=== PATIENT | female | born 1975 | race Caucasian/White ===

== ENCOUNTER 2022-07-08 21:16 | Emergency (ER) | payer MEDICAID ==
[2022-07-08] MEDS: methylPREDNISolone Sodium Succinate 125 MG/2 ML SDV IM ONE (21:59)
[2022-07-08] MEDS: Ketorolac 60 MG/2 ML SDV IM ONE (22:00)
[2022-07-08] MEDS: methylPREDNISolone Sodium Succinate 125 MG/2 ML SDV ONE (22:02)
[2022-07-08] MEDS: Ketorolac 60 MG/2 ML SDV ONE (22:03)
[2022-07-08] MEDS: fentaNYL 100 MCG/2 ML SDV IM STA (23:04)
[2022-07-09] MEDS: fentaNYL 100 MCG/2 ML SDV ONE (01:55)
== END 2022-07-08 23:42 | disposition home or self-care (01) ==
LOC: LB.ED 21:16
DX: M54.31 Sciatica, right side (principal); I10 Essential (primary) hypertension; E11.9 Type 2 diabetes mellitus without complications
CPT/HCPCS: 96372; 99283; J1885; J2930; J3010

== ENCOUNTER 2022-07-10 10:36 | Emergency (ER) | payer MEDICAID ==
[2022-07-10] MEDS ORDERED: fentaNYL 100 MCG/2 ML SDV IM STA (11:05)
[2022-07-10] MEDS ORDERED: fentaNYL 100 MCG/2 ML SDV ONE (11:21)
[2022-07-10] MEDS ORDERED: Orphenadrine 60 MG/2 ML Inj IM ONE (11:50)
[2022-07-10] MEDS ORDERED: Ketorolac 60 MG/2 ML SDV IM ONE (11:51)
[2022-07-10] MEDS ORDERED: Ketorolac 60 MG/2 ML SDV ONE (12:31)
[2022-07-10] MEDS ORDERED: Orphenadrine 60 MG/2 ML Inj ONE (12:31)
[2022-07-10 12:46] VITALS: BP 134/82; PULSE 94
== END 2022-07-10 12:35 | disposition home or self-care (01) ==
LOC: LB.ED 10:36
DX: M54.41 Lumbago with sciatica, right side (principal); E78.00 Pure hypercholesterolemia, unspecified; I10 Essential (primary) hypertension; E11.9 Type 2 diabetes mellitus without complications; E66.9 Obesity, unspecified; Z68.38 Body mass index [BMI] 38.0-38.9, adult; Z79.899 Other long term (current) drug therapy; Z79.4 Long term (current) use of insulin; Z79.84 Long term (current) use of oral hypoglycemic drugs; Z90.710 Acquired absence of both cervix and uterus
CPT/HCPCS: 72131; 96372; 99283; 99283-25; J1885; J2360; J3010

== ENCOUNTER 2023-10-22 20:11 | Emergency (ER) | payer OTHER ==
[2023-10-22] MEDS ORDERED: Cephalexin 500 MG Cap ONE (21:00)
== END 2023-10-22 21:15 | disposition home or self-care (01) ==
LOC: SUPCPDRO 20:11 → LB.ED 20:11
DX: L89.899 Pressure ulcer of other site, unspecified stage (principal); E11.40 Type 2 diabetes mellitus with diabetic neuropathy, unspecified; I10 Essential (primary) hypertension; E78.00 Pure hypercholesterolemia, unspecified; J45.909 Unspecified asthma, uncomplicated; E66.9 Obesity, unspecified; Z79.84 Long term (current) use of oral hypoglycemic drugs; Z79.899 Other long term (current) drug therapy; Z79.4 Long term (current) use of insulin
CPT/HCPCS: 99283; A9270